=== PATIENT | female | born 1990 | race Caucasian/White ===

== ENCOUNTER → 2018-07-09 13:46 | Outpatient (CLI) | payer OTHER, SELFPAY | PROVIDERS: Family Provider Family Medicine; PCP Family Medicine; Visit Provider Obstetrics & Gynecology | DX: N64.4 Mastodynia (principal) | CPT/HCPCS: 76642; 77062; 77063; 77066; G0279 ==

== ENCOUNTER → 2021-05-15 14:58 | Outpatient (CLI) | payer OTHER, SELFPAY ==
[2016-10-28 10:17] VITALS: BMI 28.8
[2021-05-15 17:29] LABS: Absolute Lymphocyte Count 2.55 X10^3/uL (0.83-4.51); Absolute Neutrophil Count 8.8 X10^3/uL (2.0-7.7); Basophil# 0.03 X10^3/uL; Basophil% 0.2 % (0-1); Eosinophil# 0.12 X10^3/uL; Hematocrit 37.2 % (37-47); Hemoglobin 12.5 g/dL (12.0-15.0); Lymphocyte # 2.55 X10^3/ul (0.83-4.51); Lymphocyte % 20.9 % (19-41); Mean Corp Hgb Conc 33.6 g/dL (32-36); Mean Corpuscular Hgb 30.4 pg (27.0-32.0); Mean Corpuscular Volume 90.5 fL (81-99); Mean Platelet Vol. 11.3 fl (6.2-12.0); Monocyte# 0.67 X10^3/uL; Monocyte% 5.5 % (0-10); NRBC Flagged by Analyzer 0 % (0-5); Neutrophil # 8.75 X10^3/uL (2.7-7.7); Neutrophil % 71.8 % (47-70); Platelet Count 297 K/mm3 (150-450); RBC Distribution Width CV 12.4 % (11.6-14.6); RBC Distribution Width SD 41.1 fl (35.1-43.9); Red Blood Count 4.11 M/mm3 (4.2-5.4); White Blood Count 12.2 K/mm3 (4.4-11.0)
[2021-05-15 17:32] LABS: Color, Urine Yellow (Yellow); Glucose, Dipstick Normal (Normal); Ketone-Dipstick Negative (Negative); Leukocyte Esterase-Dipstick Negative /ul (Negative); Nitrite-Dipstick Negative (Negative); Occult Blood-Urine Negative /ul (Negative); Protein-Dipstick Negative (Negative); Urine Bilirubin Dipstick Negative (Negative); Urine Clarity Clear (Clear); Urine Urobilinogen Normal (Normal); Urine pH 6.5 (5.0 - 8.0)
[2021-05-15 17:41] LABS: Amphetamine Urine VISTA NEGATIVE (<1000 ng/mL); Barbiturate Urine VISTA NEGATIVE (< 200 ng/mL); Benzodiazepine Urine VISTA NEGATIVE (< 200 ng/mL); Cocaine Urine VISTA NEGATIVE (< 300 ng/mL); Ecstacy Urine VISTA NEGATIVE (< 500 ng/mL); Methadone Urine VISTA NEGATIVE (< 300 ng/mL); PCP Urine VISTA NEGATIVE (< 25 ng/mL); THC Urine VISTA NEGATIVE (< 50 ng/mL); Vista UDS pH Range 6
[2021-05-15 18:26] LABS: Thyroid Stim Hormone (TSH) 0.96 uIU/mL (0.358-3.74)
[2021-05-16 09:37] LABS: HIV - WCH Non-Reactive (Nonreactive); Hepatitis B Surface Antigen Non-Reactive (Nonreactive); Hepatitis C Antibody Non-Reactive (Nonreactive); Rubella IgG Reactive (Nonreactive); Syphilis Antibodies Non-reactive
[2021-05-18 03:07] LABS: Chlamydia By Nucleic Acid AMP Negative (Negative)
[2021-05-18 15:29] LABS: Gonococcus By Nucleic Acid AMP Negative (Negative)
== END ==
PROVIDERS: Referring Provider Obstetrics & Gynecology; Visit Provider Obstetrics & Gynecology
DX: Z34.83 Encounter for supervision of other normal pregnancy, third trimester (principal); Z11.3 Encounter for screening for infections with a predominantly sexual mode of transmission
CPT/HCPCS: 36415; 80307; 81002; 84443; 85025; 86703; 86762; 86780; 86803; 87340; 87491; 87591

== ENCOUNTER → 2021-10-09 09:49 | Outpatient (CLI) | payer OTHER, SELFPAY ==
[2021-10-09 10:15] LABS: Hematocrit 35.8 % (37-47); Hemoglobin 12.2 g/dL (12.0-15.0); Mean Corp Hgb Conc 34.1 g/dL (32-36); Mean Corpuscular Hgb 30.8 pg (27.0-32.0); Mean Corpuscular Volume 90.4 fL (81-99); Platelet Count 317 K/mm3 (150-450); RBC Distribution Width CV 12.7 % (11.6-14.6); RBC Distribution Width SD 41.6 fl (35.1-43.9); Red Blood Count 3.96 M/mm3 (4.2-5.4); White Blood Count 14.4 K/mm3 (4.4-11.0)
[2021-10-09 10:41] LABS: Glucose Challenge Gest 1H 50g 113 mg/dL (70-140)
[2021-10-09 11:47] LABS: Syphilis Antibodies Non-reactive
== END ==
PROVIDERS: Visit Provider Obstetrics & Gynecology
DX: Z34.83 Encounter for supervision of other normal pregnancy, third trimester (principal)
CPT/HCPCS: 36415; 82950; 85027; 86780

== ENCOUNTER → 2021-11-05 10:28 | Outpatient (CLI) | payer OTHER, SELFPAY ==
[2021-11-05 11:18] LABS: Hematocrit 36.1 % (37-47); Hemoglobin 12.1 g/dL (12.0-15.0); Mean Corp Hgb Conc 33.5 g/dL (32-36); Mean Corpuscular Volume 89.6 fL (81-99); Platelet Count 329 K/mm3 (150-450); RBC Distribution Width CV 12.7 % (11.6-14.6); RBC Distribution Width SD 42.1 fl (35.1-43.9); Red Blood Count 4.03 M/mm3 (4.2-5.4); White Blood Count 15.6 K/mm3 (4.4-11.0)
[2021-11-05 11:30] LABS: Creatinine, Urine (random) < 13.00 mg/dL (NO RANGE EST.); Protein, Urine (Random) < 6.0 mg/dL (<11.9)
[2021-11-05 11:34] LABS: ALB/GLOB Ratio 0.7 RATIO (0.9-2.4); AST(SGOT) 29 U/L (15-37); Alanine Aminotransfer ALT/SGPT 69 U/L (13-56); Albumin, Serum 2.9 g/dL (3.2-5.0); Alkaline Phosphatase 120 U/L (45-117); Anion Gap 10 (5-15); BUN 5 mg/dL (7-18); BUN/Creat Ratio 9.7 RATIO (10-20); Calcium,Total 8.8 mg/dL (8.5-10.1); Chloride 105 mmol/L (98-107); Creatinine, Serum 0.52 mg/dL (0.55-1.02); EST Glomerular Filtration Rate 148 mL/min (>60); Est Glom Filt Rate - Afr Amer 179 mL/min (>60); Globulin 4.1 g/dL (2.2-4.2); Glucose 92 mg/dL (74-106); LDH 166 U/L (84-246); Potassium 3.6 mmol/L (3.5-5.1); Sodium Level 138 mmol/L (136-145); Uric Acid 4.1 mg/dL (2.6-6.0)
== END ==
PROVIDERS: Visit Provider Obstetrics & Gynecology
DX: O12.03 Gestational edema, third trimester (principal); Z3A.00 Weeks of gestation of pregnancy not specified
CPT/HCPCS: 36415; 80053; 82570; 83615; 84156; 84550; 85027

== ENCOUNTER 2021-12-11 16:35 | Outpatient (CLI) | payer OTHER, SELFPAY | END 2021-12-11 23:59 | disposition short-term general hospital (02) | LOC: LABSPEC 16:35 | PROVIDERS: Visit Provider Obstetrics & Gynecology | DX: Z36.85 Encounter for antenatal screening for Streptococcus B (principal) | CPT/HCPCS: 87077; 87081; 87186 ==

== ENCOUNTER 2021-12-26 15:39 | Inpatient (IN) | payer OTHER, SELFPAY ==
[2021-12-26] VITALS (12 sets, daily range): BP systolic 114–134; BP diastolic 60–72; PULSE 72–88; TEMP 36.6–36.9; O2SAT 86–98; BMI 31.9
[2021-12-26 15:36] LABS: ROM Internal Control Test YES-OK TO RESULT pt. (Internal QC)
[2021-12-26 15:38] LABS: ROM Patient Test POSITIVE (Negative)
[2021-12-26] MEDS: Lactated Ringers 1,000 ML 50 ML IV (16:07)
[2021-12-26 16:30] LABS: Absolute Lymphocyte Count 2.87 X10^3/uL (0.83-4.51); Absolute Neutrophil Count 11.3 X10^3/uL (2.0-7.7); Basophil# 0.06 X10^3/uL; Basophil% 0.4 % (0-1); Eosinophil# 0.11 X10^3/uL; Eosinophils% 0.7 % (0-5); Hematocrit 33.6 % (37-47); Hemoglobin 11.5 g/dL (12.0-15.0); Lymphocyte # 2.87 X10^3/ul (0.83-4.51); Lymphocyte % 18.5 % (19-41); Mean Corp Hgb Conc 34.2 g/dL (32-36); Mean Corpuscular Hgb 30.4 pg (27.0-32.0); Mean Corpuscular Volume 88.9 fL (81-99); Mean Platelet Vol. 11.2 fl (6.2-12.0); Monocyte# 0.76 X10^3/uL; Monocyte% 4.9 % (0-10); NRBC Flagged by Analyzer 0 % (0-5); Neutrophil # 11.31 X10^3/uL (2.7-7.7); Platelet Count 328 K/mm3 (150-450); RBC Distribution Width CV 13.1 % (11.6-14.6); RBC Distribution Width SD 42.5 fl (35.1-43.9); Red Blood Count 3.78 M/mm3 (4.2-5.4); White Blood Count 15.5 K/mm3 (4.4-11.0)
--- NOTE | 2021-12-26 17:06 | PCM.HP.BLA ---
History and Physical Date of Admission: 12/26/21 ACOG ANTEPARTUM RECORD - HISTORY AND PHYSICAL (12/26/2021) Name: IRLANDA HORTON History of this : This is a 31 year old [id number] presents at 39 wks + 1 days gestation with spontaneous rupture of membranes. OB Physician: Angelita Traylor MD [place]'s Physician: [facility] ...................................................................... : 1990 Age: 31 Address: [address] [place] [address] Phone: ([phone] Insurance Carrier: [employer] [id number] Emergency Contact: SANDRO HORTON/KARLA [phone] ...................................................................... Final ABDOUL: 01/01/22 By Ultrasound: 11 weeks 0 days PARITY: (G-Total Pregnancies P-Fullterm,Premature,Induced AB,Spont AB, Ectopics, Multiple,Living) ABDOUL CONFIRMATION: By LMP: 03/27/21 Initial Exam: 12/30/21 By First Ultrasound Exam: 12/30/21 Final ABDOUL: 01/01/22 OB PROBLEM LIST: COVID19 09/20/21 Declines genetic and carrier screening Flu shot 10/23/21 Low lying placenta ANTERIOR - rpt US at 36wga Prior x 2, would like to try a TOLA2C planned ALLERGIES: NKDA MEDICATIONS: 28 mg iron-800 mcg tablet daily SOCIAL HISTORY: Smoking - used to smoke but quit Alcohol Use - denies drinking Diet - balanced Diet Lifestyle - low stress lifestyle and single Exercise - walking Employer - [employer] Job Description - Customer Service Illicit Drug Use - denies use of street drugs Sexual Activity - Residence - lives with Place of - [place], [place] Hours Worked - 40 hours per week Spouse-Sig Other Name - Sandro Horton Spouse-Sig Other Occupation - [employer] Spouse-Sig Other Phone No - [phone] cell Children Name(s) - Sobia Negron PRIOR DELIVERY HISTORY DEL DATE GEST LAB WT LB WT OZ TYPE ANES LABOR TX 17 Aug 13 39 17 6 10 C-Sec Epidural No 20 Dec 16 40 0 7 13 C-Sec Spinal No ANTEPARTUM FLOW CHART VISIT RTC FU F F CA U U DATE WK MD WKS HT PN HR M SS BP ED WT CA GL D EF ST __ ____ ___ __ __ ___ __ __ __ ___ __ __ __ ___ __ 15 Feb 38 SHM 1 38 V + + 104/68 sl 216 - - 1+ 60 -3 09 Feb 38 SHM 1 38 V + + 130/76 sl 214 tr - 1 60 -4 02 Feb 37 SHM 1 37 V + + 138/62 1+ 213 ne ne 0 0 -5 Nov SHM 2 36 V + + 114/74 1+ 211 - - Nov SHM 2 35 V + + 108/66 1+ 210 - - Nov 08 SHM 2 33 V + + 132/72 2+ 210 tr - 15 Nov 07 SHM 2 31 ? + + 124/70 1+ 207 tr - Nov 05 SHM 2 28 ? + + 138/70 0 207 tr - 03 Oct 02 SHM 4 24 ? + + 120/68 0 202 - - 06 Aug 28 SHM 4 20 + + 136/76 sl 200 tr - 08 Jul 25 SHM 4 16 + O 128/70 0 194 tr ne Jun 19 SHM 5 on 124/66 0 184 ne ne ANTEPARTUM NOTE(S): Dec 24 2021: cervix check, ctx's, pelvic pressure Dec 18 2021: uncomfortable Dec 11 2021: FM well, GBS today Dec 03 2021: nora paulino, pelvic pressure Nov 19 2021: no concerns expressed Nov 05 2021: see note Oct 23 2021: doing well Oct 09 2021: see note Sep 11 2021: doing well, glucola given Aug 14 2021: Comp u/s today Jul 17 2021: Doing Well Jun 12 2021: US today COMPREHENSIVE ANTEPARTUM NOTE(S): Dec 24 2021: Irlanda is here for a pnv at 38/6. Good FM. Sl edema in ankles/ feet. Occasional ctx's. Pelvic pressure present. Desires cervix check, interested in membrane sweep. MK Dec 24 2021: Membranes stripped. Discussed IOL indications vs. scheduled section. Continue expectant management in interim. Dec 18 2021: Reviewed FM, SROM, and labor. still planned. LMT Dec 18 2021: Discussed TOLAC/VBA2C r/b vs. repeat C/S - pt plans to proceed with ANAY, consents signed and reviewed. Labor, FM precautions. GBS pos. Dec 17 2021: GBS pos Dec 03 2021: Irlanda is here for a pnv a 35+6. Good FM. No edema present. Occasional nora paulino, pelvic pressure. No concerns expressed at this time. MK Dec 03 2021: US today with resolution of marginal previa, anterior placenta - no signs of accreta. ok for TOLA2C. EFW 2954g (6lb8oz - 68th%), MADONNA 11.9cm. Nov 19 2021: Irlanda is here for a pnv at 33/6. Good FM. 1+ edema in b/l ankles. No concerns expressed at this time. MK Nov 19 2021: Plans to work until labor. No complaints. Do consents next visit after US for placentation. Nov 05 2021: Reviewed FM, PTL, and PROM. LMT Nov 05 2021: +2 b/l LE edema, 2+ b/l LE DTRs. Denies headache, vision changes, abdominal pain. BPs borderline elevated with increased edema. PReeclamptic labs today. Precautions reviewed. Oct 23 2021: Irlanda is here for visit. Doing well overall. She has occ discomfort but vary random. Good mvmt, slight edema reported. Reviewed FM, PTL. Plans Tdap and Influenza vaccine today. Advised ok to have both today. LMT Oct 23 2021: Advised to preregister. Tdap, influenza vaccine planned today. Preeclampsia precautions reviewed. Oct 09 2021: Irlanda is here for visit, lab draw for GCT, CBC. She relates that she is recovered from Covid. Loss of taste and smell, congestion only. Would like to discuss if she needs to do anything else? Only sx left is loss of smell. She relates good FM and no other complaints or concerns today. LMT Oct 09 2021: Glucola, CBC, RPR today. PTL, ROM, FM precautions. Discussed BTL if section - pt considering vs. possible vasectomy. Reviewed sterilization r/b. Sep 11 2021: Irlanda is here for visit. Doing well, no complaints. Plans Influenza vaccine and may go to [facility] retail pharmacy. Tdap after 27 weeks. Glucola given with instructions. LMT Sep 11 2021: Recommend flu vaccination, reviewed indications. PTL, ROM precautions. Discussed labor analgesia, epidural planned. Pt with no labor preferences at this time. Reviewed skin to skin, delayed cord clamping. Aug 14 2021: Irlanda is here for visit. Comp u/s today. Encouraged Influenza and Tdap vaccines. Encouraged her to have Covid vaccine and discussed spacing. LMT Oct 6 2021: Anatomy scan today wnl. EFW 86th%. SEX UNKNOWN - pt to reveal with family later. ANTERIOR low lying placenta at 24mm from os. Plan for US at 36w to reassess for possible accreta, but otherwise low risk. Plan for TOLA2C. Discussed expectant management with anticipation of spontaneous labor with pt preference for not scheduling C/S versus scheduling C/S at her preference at 39w. Pt declines to sched Jul 17 2021: Irlanda offers no complaints today. Nausea has resolved. Jul 17 2021: No complaints. Occasional irritability and fatigue, overall doing well. Reviewed US EFW 64th%, AGA with symmetry. Anatomy scan next visit. Plans to find out sex. Discussed movement. Jun 14 2021: NOB TELEHEALTH VISIT, 25 MINUTE DURATION. Irlanda is a 31 year old with an ABDOUL of 01/01/2022, current GA is 11 w 2 d. She reports that she still has some nausea, but that she feels it is improving, and reports that she has not vomited in the last few weeks. She had been taking Unisom (Doxylamine) occasionally, as needed, but found that it made her too drowsy. She eats small frequent meals a Jun 12 2021: Irlanda is here following US for PNV. Feeling much better. N/V starting to subside. Able to keep food and fluids down. Did try unisom but it made her too sleepy. Other than occasional cramping voices no concerns today. Urine neg/neg. LSS NEW Jun 12 2021: Nausea improved. US c/w dates with appropriate interval growth. Will repeat US at next visit with growth to further assess head shape. Pt declines aneuploidy screening today. Nuchal fold normal in appearance. REVIEW OF SYSTEMS: GENERAL - Denies fever, or chills SKIN - Denies rash, new skin lesions, or change in moles EYES - Denies blurred vision, or change in visual acuity EARS - Denies ear pain, or difficulty hearing NOSE - Denies nasal congestion, discharge, or bleeding MOUTH - Denies sore throat, or difficulty swallowing NECK - Denies pain or swelling RESPIRATORY - Denies shortness of breath, cough, wheezing CARDIOVASCULAR - Denies palpitations, chest pain, orthopnea, PND, peripheral edema, syncope or claudication GASTROINTESTINAL - Denies nausea, vomiting, diarrhea, constipation, Denies abdominal pain, melena and or bright red blood GENITOURINARY - Denies dysuria, frequency of urination, urgency, or hesitancy MUSCULOSKELETAL - Denies joint or muscle pain, or back pain NEUROLOGICAL - Denies localized numbness, weakness, or tingling PSYCHIATRIC - Denies depression, anxiety, substance abuse or suicide attempts ENDOCRINE - Denies heat or cold intolerance, weight loss or gain, increasing thirst HEMATO-IMMUNOLOGIC - Denies easy bruising, bleeding, oral ulcerations or recurrent infections GENETICS SCREENING: Age 35+ years: No Thalassemia: No Neural Tube Defect: No Down Syndrome: No KYRA-SACHS: No Sickle Cell Disease: No Hemophilia: No Musc. Dystrophy: No Cystic Fibrosis: No-declines screening [place] Chorea: No Mental Retardation: No Fragile X: No Other genetic: No Other defects: No SABs/still births: No Drugs since LMP: No INFECTION HISTORY: High risk AIDS: No High risk Hepatitis: No Exposed to TB: No Exposed to Herpes: No Rash/viral illness since LMP: No History of STD: No MENSTRUAL HISTORY: *Menses Amount/Duration: 1-2 daysMenses Regularity: regularFrequency: monthlyMenarche (Age Onset): 14* PAST SUMMARY: PARITY: 1. Total Pregnancies............ 3 2. Full Term Pregnancies........ 2 3. Premature.................... 0 4. Abortions - Induced.......... 0 5. Abortions - Spontaneous...... 0 6. Ectopics..................... 0 7. Multiple Births.............. 0 8. Living Children.............. 2 PAST #1: Date of :.................. 08/[birth year] Gestation Weeks:................ 39 Length of labor(hours):......... 17 Sex:............................ M Weight-lbs:............... 6 Weight-oz:................ 10 Type of Delivery:............... C-Sect Type of Anesthesia:............. Epidural Place of Delivery:.............. [facility] Treatment of Labor?:.... No Comment: CAN X 1, [place] PAST #2: Date of :.................. 10/28/16 Gestation Weeks:................ 40 Length of labor(hours):......... 0 Sex:............................ F Weight-lbs:............... 7 Weight-oz:................ 13 Type of Delivery:............... C-Sect Type of Anesthesia:............. Spinal Place of Delivery:.............. [place] Treatment of Labor?:.... No Comment: UNFAVORABLE CX PHYSICAL EXAMINATION General Appearence: 31 yo female in no acute distress Vital Signs: AF, VSS Heart: RRR without rubs or gallops Lungs: CTA x 2 Breasts: deferred Abdomen: gravid Pelvis: Cervix: 1/50 ROM positive Presentation: cephalic Station: -2 Fetus: Size: AGA Movement: present Heart: present LAB TEST(S) ORDERED SINCE:04/06/21 11/05/2021 URIC ACID 11/05/2021 PROTEIN+CREATININE RATIO,URINE 11/05/2021 LDH 11/05/2021 COMPREHENSIVE METABOLIC PROFIL 11/05/2021 CBC-COMPLETE BLOOD CNT NO DIFF 10/09/2021 L509.8000 10/09/2021 GLUCOSE CHALLENGE GEST 1H 50G 10/09/2021 CBC-COMPLETE BLOOD CNT NO DIFF 05/18/2021 CHLAMYDIA/GC ADRIANO APTIMA 05/16/2021 RUBELLA IGG 05/16/2021 L509.8000 05/16/2021 HIV - [facility] 05/16/2021 HEPATITIS C ANTIBODY 05/16/2021 HEPATITIS B SURFACE ANTIGEN 05/15/2021 URINE DRUG SCREEN (VISTA) 05/15/2021 URINALYSIS, ROUTINE (DIPSTICK) 05/15/2021 THYROID STIM HORMONE (TSH) 05/15/2021 T AND S-NO CHARGE W/PNP 05/15/2021 CT/NG [facility] BY PCR 05/15/2021 CBC W/DIFF, AUTOMATED 12/26/2021 COVID 19 AG RAPID (RN COLLECT) 12/26/2021 CBC W/DIFF, AUTOMATED 12/26/2021 (ROM) RUPTURE OF MEMBRANES 12/16/2021 RULE OUT BETA STREP (GRP. B) == ==== Order Observation Description Value Ref_Range A* Site == ==== COVID 19 AG RAP NOTE [facility] CBC W/DIFF, AUT NOTE [facility] CBC W/DIFF, AUT WBC 15.5 K/mm3 4.4-11.0 H ML CBC W/DIFF, AUT RBC 3.78 M/mm3 4.2-5.4 L ML CBC W/DIFF, AUT HGB 11.5 g/dL 12.0-15.0 L ML CBC W/DIFF, AUT HCT 33.6 37-47 L ML CBC W/DIFF, AUT MCV 88.9 fL 81-99 ML CBC W/DIFF, AUT MCH 30.4 pg 27.0-32.0 ML CBC W/DIFF, AUT MCHC 34.2 g/dL 32-36 ML CBC W/DIFF, AUT RDW CV 13.1 11.6-14.6 ML CBC W/DIFF, AUT RDW SD 42.5 fl 35.1-43.9 ML CBC W/DIFF, AUT PLT 328 K/mm3 150-450 ML CBC W/DIFF, AUT MPV 11.2 fl 6.2-12.0 ML CBC W/DIFF, AUT NEUT% 73.0 47-70 H ML CBC W/DIFF, AUT LY% 18.5 19-41 L ML CBC W/DIFF, AUT MONO% 4.9 0-10 ML CBC W/DIFF, AUT EO% 0.7 0-5 ML CBC W/DIFF, AUT BASO% 0.4 0-1 ML CBC W/DIFF, AUT IG% 2.500 0.0-0.9 H ML IG% - Immature Granulocytes (promyelocytes, myelocytes and metamyelocytes) > 1% indicates that a LEFT SHIFT is Present. CBC W/DIFF, AUT ABSOLUTE NEUT 11.3 X10 3/uL 2.0-7.7 H ML CBC W/DIFF, AUT ABSOLUTE LYMPH 2.87 X10 3/uL 0.83-4.51 ML CBC W/DIFF, AUT NUCLEATED RBC 0 0-5 ML (ROM) RUPTURE O NOTE [facility] (ROM) RUPTURE O ROM POSITIVE Negative A ML Amniotic fluid present indicates rupture of Membranes. RESULTS CALLED TO KYLIE RECINOS RN WP 12/26/21 [id number] REPORT READ BACK BY SAME . RULE OUT BETA S NOTE [facility] LDH NOTE [facility] LDH LDH 166 U/L 84-246 ML URIC ACID NOTE [facility] URIC ACID URIC 4.1 mg/dL 2.6-6.0 ML The drugs N-Acetylcysteine and Metamizole may falsely depress this assay. COMPREHENSIVE M NOTE [facility] COMPREHENSIVE M GLU 92 mg/dL 74-106 ML Please note revised GLUCOSE reference range effective 12/11/2017. COMPREHENSIVE M BUN 5 mg/dL 7-18 L ML COMPREHENSIVE M CREAT,SERUM 0.52 mg/dL 0.55-1.02 L ML The validity of the calculated GFR GFRAA in patients over 70 years has not been determined. Clinical correlation is essential. COMPREHENSIVE M EST GFR 148 mL/min >60 ML Non- GFR Calc COMPREHENSIVE M EST GFR - AA 179 mL/min >60 ML GFR Calc COMPREHENSIVE M BUN/CRE 9.7 RATIO 10-20 L ML COMPREHENSIVE M T PROT 7.0 g/dL 6.4-8.2 ML COMPREHENSIVE M ALB 2.9 g/dL 3.2-5.0 L ML COMPREHENSIVE M GLOB 4.1 g/dL 2.2-4.2 ML COMPREHENSIVE M A/G 0.7 RATIO 0.9-2.4 L ML COMPREHENSIVE M CA,TOTAL 8.8 mg/dL 8.5-10.1 ML COMPREHENSIVE M AST 29 U/L 15-37 ML COMPREHENSIVE M ALK P 120 U/L 45-117 H ML COMPREHENSIVE M ALT 69 U/L 13-56 H ML COMPREHENSIVE M T BILI 0.50 mg/dL 0.20-1.00 ML For patients on eltrombopag therapy, use of Dimension Lorane TBIL is not recommended. COMPREHENSIVE M NA 138 mmol/L 136-145 ML COMPREHENSIVE M POTASSIUM 3.6 mmol/L 3.5-5.1 ML COMPREHENSIVE M CL 105 mmol/L 98-107 ML COMPREHENSIVE M CO2 23.0 mmol/L 21.0-32.0 ML COMPREHENSIVE M GAP 10 5-15 ML PROTEIN+CREATIN NOTE [facility] PROTEIN+CREATIN UR CREAT < 13.00 mg/dL NO RANGE EST. ML PROTEIN+CREATIN PROTEIN,UR.RAN. < 6.0 mg/dL <11.9 ML PROTEIN+CREATIN PROT:CRE RATIO TNP mg/g CRE 0-200 ML CBC-COMPLETE BL NOTE [facility] CBC-COMPLETE BL WBC 15.6 K/mm3 4.4-11.0 H ML CBC-COMPLETE BL RBC 4.03 M/mm3 4.2-5.4 L ML CBC-COMPLETE BL HGB 12.1 g/dL 12.0-15.0 ML CBC-COMPLETE BL HCT 36.1 37-47 L ML CBC-COMPLETE BL MCV 89.6 fL 81-99 ML CBC-COMPLETE BL MCH 30.0 pg 27.0-32.0 ML CBC-COMPLETE BL MCHC 33.5 g/dL 32-36 ML CBC-COMPLETE BL RDW CV 12.7 11.6-14.6 ML CBC-COMPLETE BL RDW SD 42.1 fl 35.1-43.9 ML CBC-COMPLETE BL PLT 329 K/mm3 150-450 ML CBC-COMPLETE BL MPV 11.0 fl 6.2-12.0 ML L509.8000 NOTE [facility]Z L509.8000 SYPHILIS ABS Non-reactive ML GLUCOSE CHALLEN NOTE [facility] GLUCOSE CHALLEN GLU GEST 50G 1H 113 mg/dL 70-140 ML CBC-COMPLETE BL NOTE [facility]Z CBC-COMPLETE BL WBC 14.4 K/mm3 4.4-11.0 H ML CBC-COMPLETE BL RBC 3.96 M/mm3 4.2-5.4 L ML CBC-COMPLETE BL HGB 12.2 g/dL 12.0-15.0 ML CBC-COMPLETE BL HCT 35.8 37-47 L ML CBC-COMPLETE BL MCV 90.4 fL 81-99 ML CBC-COMPLETE BL MCH 30.8 pg 27.0-32.0 ML CBC-COMPLETE BL MCHC 34.1 g/dL 32-36 ML CBC-COMPLETE BL RDW CV 12.7 11.6-14.6 ML CBC-COMPLETE BL RDW SD 41.6 fl 35.1-43.9 ML CBC-COMPLETE BL PLT 317 K/mm3 150-450 ML CBC-COMPLETE BL MPV 11.0 fl 6.2-12.0 ML HEPATITIS C ANT NOTE [facility] HEPATITIS C ANT HEPATITIS C AB Non-Reactive Nonreactive ML Non Reactive: < 0.8 Equivocal: >/= 0.8 to < 1.0 Reactive: >/= 1.0 The CDC recommends that a reactive/equivocal HCV antibody result be followed up by the HCV Nucleic Acid Amplification test (324828) HEPATITIS B KATHY NOTE [facility] HEPATITIS B KATHY HEP B SURF AG Non-Reactive Nonreactive ML HIV - WC NOTE [facility] HIV - [facility] HIV Non-Reactive Nonreactive ML L509.8000 NOTE [facility]Z L509.8000 SYPHILIS ABS Non-reactive ML RUBELLA IGG NOTE [facility] RUBELLA IGG RUBELLA IGG Reactive Nonreactive ML Antibody Results Interpretation of Immune Status Non Reactive Presumed Non-Immune Equivocal Equivocal Reactive Presumed Immune PN N [facility]~[address] [place], [address]~ T AND AB SCREEN GEL NEGATIVE ML THYROID STIM HO NOTE HERNAN[facility]Z THYROID STIM HO TSH 0.96 uIU/mL 0.358-3.74 ML URINE DRUG SCRE NOTE [facility]Z URINE DRUG SCRE VISTA UDS PH 6 ML URINE DRUG SCRE AMPHETAMINES NEGATIVE <1000 ng/mL ML URINE DRUG SCRE BARBITIURATES NEGATIVE < 200 ng/mL ML URINE DRUG SCRE BENZODIAZIPINE NEGATIVE < 200 ng/mL ML URINE DRUG SCRE COCAINE NEGATIVE < 300 ng/mL ML URINE DRUG SCRE ECSTACY NEGATIVE < 500 ng/mL ML URINE DRUG SCRE METHADONE NEGATIVE < 300 ng/mL ML URINE DRUG SCRE OPIATES NEGATIVE < 300 ng/mL ML URINE DRUG SCRE PCP NEGATIVE < 25 ng/mL ML URINE DRUG SCRE THC NEGATIVE < 50 ng/mL ML URINALYSIS, ROU NOTE HERNAN[facility]Z URINALYSIS, ROU COLOR Yellow Yellow ML URINALYSIS, ROU URINE CLARITY Clear Clear ML URINALYSIS, ROU GLUCOSE, UR Normal mg/dl Normal ML URINALYSIS, ROU BILIRUBIN URINE Negative mg/dL Negative ML URINALYSIS, ROU KETONE UR Negative mg/dl Negative ML URINALYSIS, ROU SP.GR. DIPSTX 1.030 1.002-1.030 ML URINALYSIS, ROU PH UR 6.5 5.0 - 8.0 ML URINALYSIS, ROU PROT DIPSTX Negative mg/dl Negative ML URINALYSIS, ROU UROBILI Normal mg/dl Normal ML URINALYSIS, ROU NITRITE Negative Negative ML URINALYSIS, ROU OCCULT BLOOD-UR Negative /ul Negative ML URINALYSIS, ROU LEUK ESTERASE Negative /ul Negative ML CBC W/DIFF, AUT NOTE [facility] CBC W/DIFF, AUT WBC 12.2 K/mm3 4.4-11.0 H ML CBC W/DIFF, AUT RBC 4.11 M/mm3 4.2-5.4 L ML CBC W/DIFF, AUT HGB 12.5 g/dL 12.0-15.0 ML CBC W/DIFF, AUT HCT 37.2 37-47 ML CBC W/DIFF, AUT MCV 90.5 fL 81-99 ML CBC W/DIFF, AUT MCH 30.4 pg 27.0-32.0 ML CBC W/DIFF, AUT MCHC 33.6 g/dL 32-36 ML CBC W/DIFF, AUT RDW CV 12.4 11.6-14.6 ML CBC W/DIFF, AUT RDW SD 41.1 fl 35.1-43.9 ML CBC W/DIFF, AUT PLT 297 K/mm3 150-450 ML CBC W/DIFF, AUT MPV 11.3 fl 6.2-12.0 ML CBC W/DIFF, AUT NEUT% 71.8 47-70 H ML CBC W/DIFF, AUT LY% 20.9 19-41 ML CBC W/DIFF, AUT MONO% 5.5 0-10 ML CBC W/DIFF, AUT EO% 1.0 0-5 ML CBC W/DIFF, AUT BASO% 0.2 0-1 ML CBC W/DIFF, AUT IG% 0.600 0.0-0.9 ML IG% - Immature Granulocytes (promyelocytes, myelocytes and metamyelocytes) > 1% indicates that a LEFT SHIFT is Present. CBC W/DIFF, AUT ABSOLUTE NEUT 8.8 X10 3/uL 2.0-7.7 H ML CBC W/DIFF, AUT ABSOLUTE LYMPH 2.55 X10 3/uL 0.83-4.51 ML CBC W/DIFF, AUT NUCLEATED RBC 0 0-5 ML CHLAMYDIA/GC NA NOTE [facility] CHLAMYDIA/GC NA CHLAMY,NUC ACID Negative Negative [facility]CI CHLAMYDIA/GC NA GC BY NUC ACID Negative Negative LCI Performed at: =[address] [place] [id number] [employer] Research Group Manager: Nicole Palacios MD, Phone: [phone] CT/NG [facility] BY PC NOTE [facility]NAN[facility] CT/NG [facility] BY PC CT BY PCR Negative ML SENDOUT CT/NG [facility] BY PC NG BY PCR Negative ML SENDOUT CT/NG [facility] BY PC SPC ML SENDOUT CT/NG [facility] BY PC PROBE CHECK ML SENDOUT CT/NG [facility] BY PC SAC ML SENDOUT *Negative results from patients with symptom onset beyond five days should be treated as presumptive and confirmed by a molecular assay if clinically necessary. Negative results should not be used as the sole basis for treatment or for patient management. COVID 19 AG RAPID (RN COLLECT) *Positive results do not differentiate between SARS-CoV and SARS-CoV-2. If differentation of the specific SARS virus is desired an additional sample and an additional order is required. COVID 19 AG RAPID (RN COLLECT) * This test has not been FDA cleared or approved; the test has been authorized by FDA under an Emergency Use Authorization (EAU) for use by laboratories certified under CLIA that meet the requirements to perform moderate, high, or waived complexity tests. COVID 19 AG RAPID (RN COLLECT) Normal Reference Range: Negative SARS-CoV-2 (COVID 19) Negative RAPID METHOD Quidel Nia Analyzer PAOLA Streptococcus agalactiae (B) Amount Growth Growth Streptococcus agalactiae (B): REACTION Ampicillin <=0.25 Penicillin G <=0.06 S Ceftriaxone <=0.12 S Clindamycin >=1 R Clindamycin.induced NEG Linezolid <=2 S Vancomycin 0.5 S B POSITIVE == ==== Impression /Plan: 39 wks + 1 days intrauterine with spontaneous rupture membranes at home. Plan trial of labor after . Preparations in progress for delivery.
--- NOTE | 2021-12-26 19:35 | NURSING ---
Patient and completed Infant CPR on iPad at this time.
[2021-12-26] MEDS: Penicillin G 3,000,000 Units 50 ML 100 UNITS IV (22:35)
[2021-12-27] VITALS (68 sets, daily range): BP systolic 99–169; BP diastolic 50–73; PULSE 56–245; TEMP 36.2–37.2; O2SAT 84–100
[2021-12-27] MEDS: Penicillin G 3,000,000 Units 50 ML 100 UNITS IV ×6 (03:20→23:28)
[2021-12-27] MEDS: Lactated Ringers 1,000 ML 50 ML IV (07:30)
--- NOTE | 2021-12-27 09:08 | PCM.PN.OB ---
Subjective Subjective No complaints. Contractions every 10-20 minutes. Denies fever, chills. She feels well. Fetus moving well. Patient continues leaking fluid. Objective Data Objective Data Vital Signs: Vital Signs Temp Pulse BP Pulse Ox 97.9 F 87 117/69 97 12/27/21 07:36 12/27/21 07:39 12/27/21 07:18 12/27/21 07:39 Weight: 98.2 kg Body Mass Index (BMI) 31.9 Intake & Output: Intake and Output for Last 24 Hours 12/25/21 12/26/21 12/27/21 23:59 23:59 23:59 Intake Total 478.33 / 478.33 445.83 / 445.83 Balance 478.33 / 478.33 445.83 / 445.83 Lab / Micro Data Result Diagrams: 12/26/21 16:05 Labs: Laboratory Results - last 24 hr 12/26/21 15:00: Vag Amniotic Fld Detect POSITIVE H 12/26/21 16:05: WBC 15.5 H, RBC 3.78 L, Hgb 11.5 L, Hct 33.6 L, MCV 88.9, MCH 30.4, MCHC 34.2, RDW Std Deviation 42.5, RDW Coeff of Josué 13.1, Plt Count 328, MPV 11.2, Immature Gran % (Auto) 2.500 H, Neut % (Auto) 73.0 H, Lymph % (Auto) 18.5 L, [place] % (Auto) 4.9, Eos % (Auto) 0.7, Baso % (Auto) 0.4, Absolute Neuts (auto) 11.3 H, Absolute Lymphs (auto) 2.87, Nucleated RBC % 0 12/26/21 16:05: Blood Type B POSITIVE, Antibody Screen NEGATIVE Micro: Microbiology 12/26/21 16:10 Nasal Secretion SARS-CoV-2 Antigen (Rapid) - Final Physical Exam Narrative GEN - NAD, AAO x 3 FHR 130, moderate variability, + accelerations, no decelerations TOCO 0/10 min SVE 1/60/-3, soft and midposition Assessment & Plan (1) 39 weeks gestation of : PLAN: Cat I FHR (2) Encounter for trial of labor: COMMENT: 2 prior sections PLAN: Prolonged ROM with no cervical change Discussed baxter bulb vs. pitocin vs. section with discussion of short term and predatory animal exterminator maternal risks. Pt indicated desire to proceed with trial of labor. Baxter bulb placed Minimize vaginal exams PCN for GBS pos
[2021-12-27] MEDS: 0.9% Normal Saline Single 100 ML IV.SOLN. INTRA-UTER (09:10)
[2021-12-27] MEDS: Oxytocin 30 units/NS 500 ml 30 UNITS/500 ML IV.SOLN IV (13:04)
[2021-12-27] MEDS: Lactated Ringers 500 ML 999 ML IV (15:48)
--- NOTE | 2021-12-27 16:06 | PCM.PN.OB ---
Subjective Subjective Reports painful contractions. Requests epidural. Objective Data Objective Data Vital Signs: Vital Signs Temp Pulse BP Pulse Ox 98.2 F 114 H 129/70 H 97 12/27/21 13:51 12/27/21 14:24 12/27/21 14:24 12/27/21 13:51 Weight: 98.2 kg Body Mass Index (BMI) 31.9 Intake & Output: Intake and Output for Last 24 Hours 12/25/21 12/26/21 12/27/21 23:59 23:59 23:59 Intake Total 478.33 / 478.33 545.83 / 545.83 Balance 478.33 / 478.33 545.83 / 545.83 Lab / Micro Data Result Diagrams: 12/26/21 16:05 Labs: Laboratory Results - last 24 hr 12/26/21 16:05: WBC 15.5 H, RBC 3.78 L, Hgb 11.5 L, Hct 33.6 L, MCV 88.9, MCH 30.4, MCHC 34.2, RDW Std Deviation 42.5, RDW Coeff of Josué 13.1, Plt Count 328, MPV 11.2, Immature Gran % (Auto) 2.500 H, Neut % (Auto) 73.0 H, Lymph % (Auto) 18.5 L, [place] % (Auto) 4.9, Eos % (Auto) 0.7, Baso % (Auto) 0.4, Absolute Neuts (auto) 11.3 H, Absolute Lymphs (auto) 2.87, Nucleated RBC % 0 12/26/21 16:05: Blood Type B POSITIVE, Antibody Screen NEGATIVE Micro: Microbiology 12/26/21 16:10 Nasal Secretion SARS-CoV-2 Antigen (Rapid) - Final Physical Exam Narrative GEN - breathing through contractions FHR - 130, moderate variabiltiy, + accelerations, + variable deceleration TOCO 2-3/10 min SVE deferred Assessment & Plan (1) 39 weeks gestation of : (2) Encounter for trial of labor: COMMENT: 2 prior sections PLAN: Prolonged ROM GBS pos - PCN Obtain epidural then repeat SVE when comfortable
[2021-12-27] MEDS: fentaNYL-bupivacaine (epidural) 100 ML BAG EPIDURAL ×2 (17:12→21:16)
[2021-12-27] MEDS: Lactated Ringers 1,000 ML 200 ML IV (19:28)
[2021-12-27] MEDS: Nystatin/Triamcin Cream Tube 1 APPLIC TOPICAL (22:04)
--- NOTE | 2021-12-27 23:30 | PCM.PN.OB ---
Subjective Subjective No complaints. Pain well controlled with epidural. Objective Data Objective Data Vital Signs: Vital Signs Temp Pulse BP Pulse Ox 98.2 F 96 127/63 H 98 12/27/21 23:21 12/27/21 23:22 12/27/21 23:20 12/27/21 23:22 Weight: 98.2 kg Body Mass Index (BMI) 31.9 Intake & Output: Intake and Output for Last 24 Hours 12/25/21 12/26/21 12/27/21 23:59 23:59 23:59 Intake Total 478.33 / 478.33 3750.43 / 3750.43 Output Total 700 / 700 Balance 478.33 / 478.33 3050.43 / 3050.43 Lab / Micro Data Result Diagrams: 12/26/21 16:05 Micro: Microbiology 12/26/21 16:10 Nasal Secretion SARS-CoV-2 Antigen (Rapid) - Final Physical Exam Narrative GEN - NAD, AAO x 3 FHR 155, moderate variability, + acceleration with scalp stimulation, no deceleration TOCO 3/10 min SVE FD/100/0 Assessment & Plan (1) Encounter for trial of labor: COMMENT: 2 prior sections PLAN: Cat I FHR Start pushing (2) 39 weeks gestation of :
[2021-12-28] VITALS (16 sets, daily range): BP systolic 106–122; BP diastolic 33–64; PULSE 71–98; RESP 16–18; TEMP 36.4–37.1; O2SAT 95–98
[2021-12-28] MEDS: Oxytocin 30 units/NS 500 ml 30 UNITS/500 ML IV.SOLN 334 UNITS IV (00:23)
[2021-12-28] MEDS: Methylergonovine 0.2 MG/ML Ampul IM (00:29)
--- NOTE | 2021-12-28 00:37 | OP.PCM_ITS ---
Assessment & Plan (1) Encounter for trial of labor: COMMENT: 2 prior sections (2) 39 weeks gestation of : (3) (vaginal after ): Maternal Data Information Final ABDOUL: 01/01/22 Final ABDOUL Source: [place] <20 weeks Gestational age: 39 3/7wga Vaginal Delivery Maternal Presentation Maternal Presentation: Medically Indicated Induction Type of Induction: Pitocin and Roth Bulb Medical Reason for Induction: Premature Rupture of Membranes Operative Information Date of Procedure: 12/28/21 Pre-Operative Diagnosis: 1. 39-3/7 weeks gestation 2. Trial of labor 3. Prior section x2 Post-Operative Diagnosis: 1. 39-3/7 weeks gestation 2. Trial of labor 3. Prior section x2 Surgery / Procedure Performed: Type of Anesthesia: Epidural Anesthesiologist: Haydee Braun Drain: Roth to straight drain Estimated Blood Loss: 350 ml Time of Delivery: 00:18 Findings Description of Procedure: Arrived to room and patient was fully dilated and +3 s tation with category 2 heart rate tracing maintaining moderate variability with variable decelerations occurring with pushing. Patient pushed with good effort to deliver a vigorous female infant in OA. The infant was passed to the mother and placed on the maternal abdomen and further attended by nursery personnel. The cord was doubly clamped and cut at approximately 3 minutes of infant life. IV Pitocin was given. The placenta delivered spontaneously and appeared intact on inspection. There was brisk uterine bleeding without hemorrhage with lower uterine segment atony. Intrauterine exam was performed and followed by gauze curettage and bimanual uterine massage was done. IM Methergine was administered with improvement of bleeding and lower uterine segment tongue. There were no palpable defects of the lower uterine segment appreciated. A first-degree perineal laceration with vaginal extension was repaired with 3-0 Vicryl repeat with excellent hemostasis. Sponge and needle counts were correct x2. Presentation: Vertex Amniotic Membrane Rupture Type: Spontaneous Time of Membrane Rupture: 1300h 12/26/21 Amniotic Fluid Description: Clear Placental Delivery Description: Spontaneous Placenta Disposition: [facility] Cord Vessel Description: 3 Vessels Cord Entanglement: None Infant A Gender: Female (1 minute): 8 (5 minute): 9 Delayed Cord Clamping: Yes Post Vaginal Delivery Medications Given After Delivery: IV Pitocin and IM Methergin Episiotomy Description: None Laceration: Midline, Perineal Extension/lac, Vaginal Extension/lac and 1st degree Complication Complications: None
[2021-12-28] MEDS: Acetaminophen 500 MG Tablet 1000 MG PO ×2 (01:25→15:04)
[2021-12-28] MEDS: Nystatin/Triamcin Cream Tube 1 APPLIC TOPICAL ×3 (06:14→21:57)
--- NOTE | 2021-12-28 07:53 | PCM.PN.BLA ---
Progress Note Patient sleeping comfortably s/p early this morning. Will return to evaluate tomorrow.
[2021-12-28] MEDS: Prenatal Vits Tablet 1 TABLET PO (14:56)
[2021-12-28] MEDS: Ibuprofen 600 MG Tablet PO (21:00)
[2021-12-29 02:05] VITALS: BP 131/53; PULSE 66; RESP 18; TEMP 36.2; O2SAT 95
[2021-12-29] MEDS: Nystatin/Triamcin Cream Tube 1 APPLIC TOPICAL (06:36)
--- NOTE | 2021-12-29 08:55 | PCM.PN.OB ---
Subjective Subjective Raghu reports soreness of perineum, but otherwise denies painfulness. She feels well and is out of bed, ambulating, voiding without difficulty. Infant is feeding well. Denies heavy lochia. Objective Data Objective Data Vital Signs: Vital Signs Temp Pulse Resp BP Pulse Ox 97.1 F L 66 18 131/53 H 95 12/29/21 02:05 12/29/21 02:05 12/29/21 02:05 12/29/21 02:05 12/29/21 02:05 Oxygen Delivery Method Room Air Weight: 98.2 kg Body Mass Index (BMI) 31.9 Intake & Output: Intake and Output for Last 24 Hours 12/27/21 12/28/21 12/29/21 23:59 23:59 23:59 Intake Total 3750.43 / 3750.43 1590 / 1590 Output Total 700 / 700 1450 / 1450 Balance 3050.43 / 3050.43 140 / 140 Lab / Micro Data Result Diagrams: 12/26/21 16:05 Micro: Microbiology 12/26/21 16:10 Nasal Secretion SARS-CoV-2 Antigen (Rapid) - Final Physical Exam Const alert, oriented x3 and no apparent distress Resp normal respiratory effort and normal air movement Cardio regular rate, regular rhythm, S1 normal heart sound and S2 normal heart sound Uterus Palpation: uterus fundus firm and other OB fundus nontender Extremity no calf tenderness and no pedal edema Neuro oriented x3 Assessment & Plan (1) (vaginal after ): PLAN: PPD#1 s/p VBA2C Rh positive Plan for d/c home today
--- NOTE | 2021-12-29 09:01 | PCM.DC.SUM ---
Providers Date of Admission: 12/26/21 Primary Care Physician: Bessy Primary Care Phys Reason For Visit: LABOR AND DELIVERY Diagnosis Discharge Diagnosis (1) (vaginal after ): Status: Acute Code(s): O34.219 - Maternal care for unspecified type scar from previous delivery Medications at Discharge Home Medications vit,[id number] [Prenatabs FA] 1 tab PO DAILY 08/24/13 ibuprofen 600 mg PO Q6H PRN PRN #30 tab 12/29/21 Hospital Course Operations None Procedures None Summary of Care Provided Hospital Course: 31yo admitted at 39 1/7 weeks gestation with PROM. Patient had history of 2 prior sections and desires TOLA2C. She was observed with no progression or onset of labor. Following counseling, she opted to proceed with induction. She had a baxter bulb, then pitocin and progressed to deliver a vigorous female at 39 4/7 weeks gestation. Her course was unremarkable and she was discharged to home on day#1. Weight / BMI Weight Weight: 98.2 kg Body Mass Index (BMI) 31.9 ABG / Lab / Microbiology Data Result Diagrams: 12/26/21 16:05 Microbiology: Microbiology 12/26/21 16:10 Nasal Secretion SARS-CoV-2 Antigen (Rapid) - Final D/C Instructions Discharge Diet: No restrictions May resume sexual activity in: 6 weeks Lifting Restricted to (Lbs): 20 Call your doctor if you observe: Fever of 101 or Higher, Using more than 1 pad per hour, Shortness of breath, Chest pain, Calf discomfort, Uncontrolled pain and - (Persistent or severe headache) Please Follow Up With: Angelita Traylor MD When: 3 weeks for telehealth follow up 6 weeks for visit Meaningful Use Info Meaningful Use Diagnoses (Choose all that apply): None applicable Discharge Plan Admission Admit Date/Time: 12/26/21 15:39 Primary Reason for Your Visit: Vaginal after section Attending Provider: Angelita Murray Primary Care Provider: Care Physician,No Primary Instructions Patient Instructions: Depression Discharge Orders/Prescriptions Prescriptions: New ibuprofen 600 mg Tablet 600 mg PO Q6H PRN PRN (Reason: Pain Score 1-3) Qty: 30 RF: 0 Continued vit,[id number] [Prenatabs FA] 1 TABLET tablet 1 tab PO DAILY RF: 0 Referrals / Follow Up: Care Physician,No Primary [Primary Care Provider] - Disposition Disposition (needs filled in before D/C Order can be placed): Home, Self Care
[2021-12-29 10:15] VITALS: BP 131/56; PULSE 88; RESP 14; TEMP 36.9; O2SAT 97
== END 2021-12-29 13:20 | disposition home or self-care (01) | DRG 807 ==
LOC: WPOUT 15:39 → WP 15:39
PROVIDERS: Obstetrics & Gynecology; Admitting Provider Obstetrics & Gynecology; Visit Provider Obstetrics & Gynecology
DX: O34.219 Maternal care for unspecified type scar from previous cesarean delivery (principal); Z37.0 Single live birth; O42.92 Full-term premature rupture of membranes, unspecified as to length of time between rupture and onset of labor; O70.0 First degree perineal laceration during delivery; O62.2 Other uterine inertia; O99.824 Streptococcus B carrier state complicating childbirth; Z3A.39 39 weeks gestation of pregnancy; Z87.59 Personal history of other complications of pregnancy, childbirth and the puerperium; Z86.16 Personal history of COVID-19; Z87.891 Personal history of nicotine dependence
CPT/HCPCS: 59025; 59050; 84112; 85025; 86850; 86900; 86901; 87426; 99218; J7120; G0378